=== PATIENT | female | born 1975 | race Caucasian/White ===

== ENCOUNTER 2019-10-02 10:02 | Emergency (ER) | payer OTHER ==
[2019-10-02] MEDS ORDERED: KETOROLAC TROMETHAMINE 60 MG/2 ML VIAL IM ONE (10:35)
[2019-10-02] MEDS ORDERED: PROCHLORPERAZINE EDISYLATE 10 MG/2 ML VIAL ONE (10:35)
== END 2019-10-02 12:30 | disposition home or self-care (01) ==
LOC: SED 10:02
DX: G43.909 Migraine, unspecified, not intractable, without status migrainosus (principal)
CPT/HCPCS: 96372; 99283; J0780; J1885

== ENCOUNTER 2021-05-31 10:51 | Emergency (ER) | payer OTHER ==
[~2021-05-31] VITALS: Ht 149.9 cm; Wt 81.6 kg
[2021-05-31 11:41] VITALS: BP_SYST 136
[2021-05-31] MEDS ORDERED: ONDANSETRON 4 MG ODT TAB PO ONE (12:15)
[2021-05-31] MEDS ORDERED: MORPHINE 4 MG INJ. 4 MG/ML VIAL IM ONE (12:15)
[2021-05-31] MEDS ORDERED: TRAM50TA PO (14:00)
[2021-05-31] MEDS ORDERED: NAPR-688 PO (14:00)
[2021-05-31 14:10] VITALS: BP_SYST 132
== END 2021-05-31 14:10 | disposition home or self-care (01) ==
LOC: SED 10:51
DX: S29.012A Strain of muscle and tendon of back wall of thorax, initial encounter (principal); Z79.899 Other long term (current) drug therapy; X50.9XXA Other and unspecified overexertion or strenuous movements or postures, initial encounter; Y93.89 Activity, other specified; Y92.89 Other specified places as the place of occurrence of the external cause; Y99.8 Other external cause status
CPT/HCPCS: 71045; 81002; 81025; 96372; 99283; J2270; Q0162

== ENCOUNTER 2023-08-22 09:55 | Emergency (ER) | payer OTHER ==
[~2023-08-22] VITALS: Ht 149.9 cm; Wt 79.4 kg
[2023-08-22 09:55] VITALS: BP_SYST 128; BP_SYST 131; PULSE 79; PULSE 85; RESP 18; TEMP 97.2; TEMP 98.2; O2SAT 98
[~2023-08-22 09:55] MED LIST: NAPR-688 PO; TRAM50TA PO
[2023-08-22] MEDS ORDERED: FAMOTIDINE 20 MG TABLET PO ONE (11:15)
[2023-08-22] MEDS ORDERED: MAG-AL HYDROX/SIMETH 30 ML UDC PO ONE (11:15)
[2023-08-22 12:01] LABS: BASOPHILS # (AUTO) 0.1 K/uL (0.0-0.2); BASOPHILS % (AUTO) 0.9 % (0.0-2.0); EOSINOPHILS # (AUTO) 0.2 K/uL (0.0-0.4); EOSINOPHILS % (AUTO) 2.1 % (0.0-4.0); HEMATOCRIT 41.4 % (36-48); HEMOGLOBIN 13.9 g/dL (12.0-16.0); LYMPHOCYTES # (AUTO) 2.9 K/uL (1.0-5.5); LYMPHOCYTES % (AUTO) 31.9 % (20.5-51.5); MEAN CORPUSCULAR HEMOGLOBIN 29 pg (27-31); MEAN CORPUSCULAR HGB CONC 34 % (32-36); MEAN CORPUSCULAR VOLUME 87 fL (79.0-98.0); MONOCYTES # (AUTO) 0.5 K/uL (0.0-1.0); MONOCYTES % (AUTO) 5.6 % (1.7-9.3); NEUTROPHILS # (AUTO) 5.3 K/uL (1.8-7.7); NEUTROPHILS % (AUTO) 59.5 % (40.0-70.0); PLATELET COUNT (AUTO) 277 K/uL (130-430); RED BLOOD CELL COUNT(AUTO) 4.77 MIL/uL (4.2-6.2); RED CELL DISTRIBUTION WIDTH 12.4 % (9.0-15.0)
[2023-08-22 12:17] LABS: ANION GAP 5 (5-15); CALCIUM 8.8 mg/dL (8.4-11.0); CARBON DIOXIDE 31 mmol/L (23-29); CHLORIDE 101 mmol/L (98-107); CREATININE 0.52 mg/dL (0.55-1.30); GFR AFRICAN AMERICAN 161 mL/min (>90); GLUCOSE 240 mg/dL (74-106); POTASSIUM 4.1 mmol/L (3.5-5.1); SODIUM SERUM 137 mmol/L (136-145); UREA NITROGEN, BLOOD 8 mg/dL (8-21)
[2023-08-22 12:18] LABS: GFR NON AFRICAN-AMERICAN 133 mL/min (>90)
[2023-08-22 12:24] LABS: ALANINE AMINOTRANSFERASE 38 U/L (12-78); ALBUMIN 3.4 g/dL (3.4-4.8); ASPARTATE AMINOTRANSFERASE 17 U/L (10-37); LIPASE 28 U/L (16-77); TOTAL BILIRUBIN 0.4 mg/dL (0.0-1.0); TOTAL PROTEIN, SERUM 6.9 g/dL (6.4-8.3)
[2023-08-22] MEDS ORDERED: KETOROLAC TROMETHAMINE 30 MG VIAL IM ONE (12:30)
[2023-08-22 13:38] LABS: BILIRUBIN,URINE NEGATIVE (NEGATIVE); BLOOD, URINE NEGATIVE (NEGATIVE); CLARITY/URINE CLEAR (CLEAR); COLOR,URINE YELLOW (YELLOW); GLUCOSE,URINE 3+ (NEGATIVE); KETONES,URINE NEGATIVE (NEGATIVE); LEUKOCYTE ESTERASE ,URINE NEGATIVE (NEGATIVE); NITRITE, URINE NEGATIVE (NEGATIVE); PROTEIN URINE NEGATIVE (NEGATIVE); UROBILINOGEN,URINE 0.2 (0.2-1.0)
[2023-08-22 13:54] LABS: BACTERIA,URINE RARE /HPF (None Seen); MUCUS,URINE 1+ /LPF (None Seen); RBC,URINE 0-3 /HPF (0-3); WBC,URINE 0-3 /HPF (0-3)
[2023-08-22] MEDS ORDERED: FAMO10TA41 PO (14:11)
[2023-08-22] MEDS ORDERED: ANT30 PO (14:11)
[2023-08-22 14:56] VITALS: BP_SYST 131; PULSE 79; RESP 18; TEMP 97.2; O2SAT 98
== END 2023-08-22 14:53 | disposition home or self-care (01) ==
LOC: SED 09:55
DX: R10.13 Epigastric pain (principal); R07.9 Chest pain, unspecified; E88.89 Other specified metabolic disorders; E11.65 Type 2 diabetes mellitus with hyperglycemia; R73.9 Hyperglycemia, unspecified; Z79.899 Other long term (current) drug therapy
CPT/HCPCS: 99285; 76705; 71045; 80053; 81001; 82962; 83690; 85025; 84484; 36415; 93005; 81025; 96372; 81000; 81015; J1885

== ENCOUNTER 2024-06-18 10:33 | Emergency (ER) | payer OTHER ==
[~2024-06-18] VITALS: Ht 149.9 cm; Wt 84.4 kg
[~2024-06-18 10:33] MED LIST changes: +ANT30 PO; +FAMO10TA41 PO
[2024-06-18 10:36] VITALS: BP_SYST 145; PULSE 89; RESP 17; TEMP 97; O2SAT 96
[2024-06-18 12:15] LABS: BASOPHILS # (AUTO) 0.1 K/uL (0.0-0.2); BASOPHILS % (AUTO) 0.7 % (0.0-2.0); EOSINOPHILS # (AUTO) 0.2 K/uL (0.0-0.4); EOSINOPHILS % (AUTO) 1.6 % (0.0-4.0); HEMATOCRIT 39.2 % (36-48); HEMOGLOBIN 13.2 g/dL (12.0-16.0); LYMPHOCYTES # (AUTO) 2.9 K/uL (1.0-5.5); LYMPHOCYTES % (AUTO) 25.2 % (20.5-51.5); MEAN CORPUSCULAR HEMOGLOBIN 29 pg (27-31); MEAN CORPUSCULAR HGB CONC 34 % (32-36); MEAN CORPUSCULAR VOLUME 87 fL (79.0-98.0); MONOCYTES # (AUTO) 0.7 K/uL (0.0-1.0); MONOCYTES % (AUTO) 6.3 % (1.7-9.3); NEUTROPHILS # (AUTO) 7.6 K/uL (1.8-7.7); NEUTROPHILS % (AUTO) 66.2 % (40.0-70.0); PLATELET COUNT (AUTO) 289 K/uL (130-430); RED CELL DISTRIBUTION WIDTH 12.8 % (9.0-15.0); WHITE BLOOD COUNT (AUTO) 11.4 K/uL (4.8-10.8)
[2024-06-18 12:39] LABS: INR 0.9 (0.8-1.2); PROTHROMBIN TIME 9.5 SECS (9.5-12.5)
[2024-06-18 12:41] LABS: ALANINE AMINOTRANSFERASE 40 U/L (12-78); ALBUMIN 3.5 g/dL (3.4-4.8); ANION GAP 9 (5-15); ASPARTATE AMINOTRANSFERASE 16 U/L (10-37); BILIRUBIN,DIRECT 0.1 mg/dL (0.0-0.3); CALCIUM 8.4 mg/dL (8.4-11.0); CARBON DIOXIDE 26 mmol/L (23-29); CHLORIDE 103 mmol/L (98-107); CREATINE KINASE, TOTAL 39 U/L (26-192); CREATININE 0.58 mg/dL (0.55-1.30); GFR AFRICAN AMERICAN 142 mL/min (>90); GFR NON AFRICAN-AMERICAN 117 mL/min (>90); GLUCOSE 251 mg/dL (74-106); POTASSIUM 3.8 mmol/L (3.5-5.1); SODIUM SERUM 138 mmol/L (136-145); TOTAL BILIRUBIN 0.3 mg/dL (0.0-1.0); TOTAL PROTEIN, SERUM 7.3 g/dL (6.4-8.3); UREA NITROGEN, BLOOD 14 mg/dL (8-21)
[2024-06-18] MEDS ORDERED: OMEP20CA15 PO (13:46)
[2024-06-18 13:53] VITALS: BP_SYST 110; PULSE 65; RESP 15; TEMP 97; O2SAT 100
== END 2024-06-18 13:53 | disposition home or self-care (01) ==
LOC: SED 10:33
DX: K20.80 Other esophagitis without bleeding (principal); R07.2 Precordial pain; R10.13 Epigastric pain; R11.0 Nausea; E11.9 Type 2 diabetes mellitus without complications; Z79.899 Other long term (current) drug therapy; Z79.2 Long term (current) use of antibiotics
CPT/HCPCS: 36415; 71045; 76705; 80048; 80076; 82550; 83690; 84484; 85025; 85610; 85730; 93005; 99285